=== PATIENT | male | born 1975 | race Caucasian/White ===

== ENCOUNTER 2022-10-10 09:13 | Outpatient (CLI) | payer MEDICAID, SELFPAY ==
--- NOTE | 2022-10-10 09:30 | MR_ITS ---
WS: [id number] MRI LUMBAR SPINE NONCONTRAST HISTORY: M54.16 - Radiculopathy, lumbar region COMPARISON: None available. TECHNIQUE: Sagittal and axial multisequence imaging is submitted. Localizer image demonstrates mild cervical stenosis at C3-4. Multilevel areas of very mild disc bulgi ng and central protrusions throughout the thoracic and cervical spine. Less than 2 mm retrolisthesis of L4. No acute fractures. Mild disc space narrowing and desiccation at L4-5 and L5-S1. Conus terminates normally at L1. L1-L2: Mild facet and ligamentum flavum hypertrophy. Mild LEFT foraminal stenosis. L2-L3: Mild ligamentum flavum and facet arthritis. No stenosis. L3-L4: Mild annular disc bulging with very slight encroachment upon the LEFT subarticular recess. Lig amentum flavum and facet arthritis. Very mild subarticular encroachment. Mild foraminal stenosis. L4-L5: Mild annular disc bulging and osteophytic ridging. Small annular fissure. Moderate ligamentum flavum and facet arthritis. There is fluid in the facet joints. There is mild disc encroachment upon the lateral recesses and foramen. Mild bilateral subarticular recess and foraminal stenosis. L5-S1: Moderate annular disc bulging encroaching into the lateral recesses. There is mild contact on the S1 nerve roots and central stenosis. Disc and osteophyte encroachment into the foramina. Mild nelli tral with moderate bilateral subarticular recess and foraminal stenosis. Mild facet arthritis. Paravertebral soft tissues are negative. MR/MR lumbar spine wo con* [id number] IMPRESSION: 1. Mild central with moderate bilateral subarticular recess and foraminal sten osis at L5-S1 due to disc and osteophyte and facet disease. 2. Mild LEFT foraminal stenosis at L1-2. 3. Very mild subarticular recess encroachment and foraminal stenosis at L3-4 a nd L4-5. 4. Multilevel facet joint arthritis most significant at L4-5.
== END 2022-10-10 09:14 | disposition home or self-care (01) ==
LOC: RAD 09:17
PROVIDERS: Visit Provider Anesthesiology Pain Medicine
DX: M54.16 Radiculopathy, lumbar region (principal); M48.07 Spinal stenosis, lumbosacral region; M47.896 Other spondylosis, lumbar region
CPT/HCPCS: 72148